=== PATIENT | female | born 1980 | race Caucasian/White ===

== ENCOUNTER → 2017-06-02 | Outpatient (CLI) | payer BC ==
[2017-06-02 11:26] LABS: Basophils % (A) 0 %; Eosinophils # (A) 0.4 k/uL (0-0.7); Eosinophils % (A) 5 %; HCT 42.2 % (34.0-46.0); HGB 14.4 gm/dL (11.4-16.0); Lymphocytes % (A) 27 %; MCV 88.2 fL (80.0-100.0); Mean Platelet Volume 7.8; Monocytes # (A) 0.4 k/uL (0-1.0); Monocytes % (A) 6 %; Neutrophils # (A) 4.3 k/uL (1.3-7.7); Neutrophils % (A) 60 %; Platelet Count 165 k/uL (150-450); RBC 4.78 m/uL (3.80-5.40); RDW 12.8 % (11.5-15.5); WBC 7.2 k/uL (3.8-10.6)
== END | disposition home or self-care (01) ==
LOC: LABPAT 10:55
PROVIDERS: ATTEND Obstetrics & Gynecology
DX: Z01.812 Encounter for preprocedural laboratory examination (principal); N92.0 Excessive and frequent menstruation with regular cycle
CPT/HCPCS: 36415; 85025

== ENCOUNTER 2017-06-17 08:02 | Day surgery (SDC) | payer BC ==
[2017-06-09 15:27] VITALS: BMI 35.4
[~2017-06-17 08:02] MED LIST: DEXAMETHASONE SOD PHOSPHATE 10 MG/ML 1 ML VIAL IV ONE; HYDROmorphone 0.5 MG/0.5 ML SYRINGE IVP PRN; LIDOCAINE 1% 20 ML VIAL (10MG/ML) FOR IV START INTRADERMA PRN; MIDAZOLAM 2 MG/2 ML VIAL IV PRN; ONDANSETRON 4 MG/2 ML VIAL IVP ONE; Pre Op ABX Message 1 EACH MISC MISCELLANE ONE; SCOPOLAMINE 1.5MG/72HR PATCH TRANSDERM ONE; fentaNYL (PF) 50 MCG/ML 2 ML AMP IV PRN
[2017-06-17 08:34] VITALS: RESP 16
[2017-06-17] MEDS: LACTATED RINGERS 1,000 ML IV SCH ×2 (08:37→09:46)
[2017-06-17 08:54] LABS: Glucose,Whole Blood 128 mg/dL (75-99)
[2017-06-17] MEDS ORDERED: MIDAZOLAM 2 MG/2 ML VIAL ONE (09:49)
[2017-06-17] MEDS ORDERED: PROPOFOL 10 MG/ML 20 ML VIAL IV ONE (09:49)
[2017-06-17] MEDS ORDERED: KETOROLAC 30 MG/ML 1 ML VIAL ONE (09:49)
[2017-06-17] MEDS ORDERED: LIDOCAINE 1% INJ 10MG/ML (20 ML MDV) ONE (09:49)
[2017-06-17] MEDS ORDERED: fentaNYL (PF) 50 MCG/ML 2 ML AMP ONE (09:49)
--- NOTE | 2017-06-17 10:11 | P.OP ---
Date of Procedure: 06/17/17 Preoperative Diagnosis: Menorrhagia Postoperative Diagnosis: Same Procedure(s) Performed: Hysteroscopy, NovaSure ablation. Anesthesia: ANGELA Surgeon: Monica Mtz Estimated Blood Loss (ml): 5 IV fluids (ml): 300 Urine output (ml): 200 Pathology: none sent Condition: stable Disposition: PACU Description of Procedure: Patient is brought to the operating suite where a general anesthetic is administered without difficulty. She's placed in the dorsal lithotomy position. The appropriate timeout is performed to assure proper patient and procedural identification, urine hCG is negative. The cervix, vagina, perineal bodies are all prepped and draped in the usual sterile fashion. The bladder is drained for approximately 200 mL of clear yellow urine. Examination under anesthesia reveals an anteverted uterus that is small mobile, adnexa negative bilaterally. Weighted speculum was placed into the vagina. Anterior lip of the cervix is grasped with a double-tooth tenaculum. The uterus sounds to a depth of 7.5 cm in the anteverted position. Cervix is gently and systematically dilated using Hanks dilators. Hysteroscope was then placed and saline is infused. The cavity is distended and inspected, there are no polyps fibroids intrauterine septa or defects. Hysteroscope was removed. NovaSure wand is next seated, Calibrated and enabled. For 92 seconds with a power of 76 W the procedure is carried out. Uterine length is 5.5 cm, width is 2.5 cm. When the machine shuts off the wand is reduced and removed. Reinspection of the cavity now with the hysteroscope reveals the cavity to be uniformly blanched, consistent with thorough procedure. Hysteroscope was removed. Anterior lip of the cervix is clean and dry. All sponge needle and enhancement counts are correct. Patient is brought back to recovery room in very good condition with stable vital signs including a blood pressure 121/57, pulse 59, 94% O2 saturation. Toradol is given prior to leaving the operative suite. Patient will follow-up with me in the office in 2 weeks.
[2017-06-17 10:25] VITALS: TEMP 97
[2017-06-17 10:40] LABS: Glucose,Whole Blood 119 mg/dL (75-99)
[2017-06-17 11:25] VITALS: BP 130/75; PULSE 55
== END 2017-06-17 11:30 | disposition home or self-care (01) ==
LOC: OR 08:02
PROVIDERS: ATTEND Obstetrics & Gynecology
DX: N92.0 Excessive and frequent menstruation with regular cycle (principal); E11.9 Type 2 diabetes mellitus without complications; F17.210 Nicotine dependence, cigarettes, uncomplicated; E78.5 Hyperlipidemia, unspecified; Z79.84 Long term (current) use of oral hypoglycemic drugs; Z79.899 Other long term (current) drug therapy; Z88.2 Allergy status to sulfonamides
CPT/HCPCS: 81025; 58563; J2250; J1100; J2405; J2001; J3010; J1885; J2704

== ENCOUNTER 2017-12-09 07:45 | Emergency (ER) | payer BC ==
[2017-12-09] MEDS ORDERED: SODIUM CHLORIDE 0.9% 500 ML IV STA (08:08)
[2017-12-09] MEDS ORDERED: SODIUM CHLORIDE 0.9% 1,000 ML IV STA (08:08)
--- NOTE | 2017-12-09 08:11 | ED ---
Recheck HPI - General Chief Complaint: Recheck/Abnormal Lab/Rx Stated Complaint: numbness in fingers and toes Time Seen by Provider: 12/09/17 07:56 Source: patient, RN notes reviewed, old records reviewed Mode of arrival: wheelchair Limitations: no limitations - History of Present Illness Initial Comments: 37-year-old female presents emergency department today with chief complaint of numbness and tingling over the hands and feet. Patient reports that today she started to have some burning in her chest as well. She states she was seen at [facility] earlier this year was also an outpatient stress test completed. She she never had this done. She is concerned about having any heart attacks. She states that she was driving to school today and started having numbness in her feet became quite anxious. Patient states that she has had family history of heart disease. Patient denies any fevers or chills. She denies a nausea vomiting or shortness of breath. She denies any headache or dizziness. - Related Data Home Medications Medication Instructions Recorded Confirmed Rosuvastatin Calcium [Crestor] 5 mg PO HS 06/09/17 12/09/17 metFORMIN HCL [Glucophage] 500 mg PO BID 06/09/17 12/09/17 Allergies Allergy/AdvReac Type Severity Reaction Status Date / Time Sulfa (Sulfonamide Allergy Anaphylaxis Verified 12/09/17 08:09 Antibiotics) Review of Systems ROS Statement: Those systems with pertinent positive or pertinent negative responses have been documented in the HPI. ROS Other: All systems not noted in ROS Statement are negative. Past Medical History Past Medical History: Diabetes Mellitus History of Any Multi-Drug Resistant Organisms: None Reported Past Surgical History: Section Additional Past Surgical History / Comment(s): uterine ablation cryosurgery Past Psychological History: No Psychological Hx Reported Smoking Status: Current every day smoker Past Alcohol Use History: Occasional Past Drug Use History: None Reported General Exam - General Exam Comments Initial Comments: 37-year-old female. Alert and oriented. No acute distress. Limitations: no limitations General appearance: alert, in no apparent distress Head exam: Present: atraumatic, normocephalic, normal inspection Eye exam: Present: normal appearance, PERRL, EOMI. Absent: scleral icterus, conjunctival injection, periorbital swelling ENT exam: Present: normal exam, mucous membranes moist Neck exam: Present: normal inspection. Absent: tenderness, meningismus, lymphadenopathy Respiratory exam: Present: normal lung sounds bilaterally. Absent: respiratory distress, wheezes, rales, rhonchi, stridor Cardiovascular Exam: Present: regular rate, normal rhythm, normal heart sounds. Absent: systolic murmur, diastolic murmur, rubs, gallop, clicks GI/Abdominal exam: Present: soft, normal bowel sounds. Absent: distended, tenderness, guarding, rebound, rigid Extremities exam: Present: normal inspection, full ROM, normal capillary refill. Absent: tenderness, pedal edema, joint swelling, calf tenderness Back exam: Present: normal inspection Neurological exam: Present: alert, oriented X3, CN II-XII intact Psychiatric exam: Present: normal affect, normal mood Skin exam: Present: warm, dry, intact, normal color. Absent: rash Course Vital Signs 12/09/17 07:50 Temperature 98.4 F Pulse Rate 79 Respiratory 16 Rate Blood Pressure 131/86 O2 Sat by Pulse 100 Oximetry Medical Decision Making - Medical Decision Making 29-year-old female process restricted complaint of 100 fingers, complains of chest pain. Initially believe the patient's symptoms related to anxiety attack. She states that she did not feel that we. Did offer the Patient had and she did refuse. We gave her an aspirin. EKG did show some T-wave inversions in V1 and V2. I discussed. This to an old EKG done at the April 27 2017 at [facility]. There is no acute changes compared of this EKG from them. Her troponin is negative. The rest of her lab work was unremarkable besides mild elevation of her lumbar enzymes. I did inform Patient of all these results. She states that she wants to go home at this time. I did discuss that she should have some prompt follow up with her primary care physician as well as a distance learning program coordinator to schedule outpatient stress testing. Patient agrees. She states these symptoms at this time and would like to be discharged home. Return parameters were discussed. - Lab Data Result diagrams: 12/09/17 08:34 12/09/17 08:34 Lab Results 12/09/17 12/09/17 12/09/17 Range/Units 08:34 08:34 08:34 WBC 6.9 (3.8-10.6) k/uL RBC 4.83 (3.80-5.40) m/uL Hgb 15.0 (11.4-16.0) gm/dL Hct 43.5 (34.0-46.0) % MCV 90.1 (80.0-100.0) fL MCH 31.1 (25.0-35.0) pg MCHC 34.5 (31.0-37.0) g/dL RDW 12.5 (11.5-15.5) % Plt Count 160 (150-450) k/uL Neutrophils % 58 % Lymphocytes % 27 % Monocytes % 7 % Eosinophils % 6 % Basophils % 1 % Neutrophils # 4.0 (1.3-7.7) k/uL Lymphocytes # 1.9 (1.0-4.8) k/uL Monocytes # 0.5 (0-1.0) k/uL Eosinophils # 0.4 (0-0.7) k/uL Basophils # 0.0 (0-0.2) k/uL PT (9.0-12.0) sec INR (<1.2) APTT (22.0-30.0) sec Sodium 141 (137-145) mmol/L Potassium 4.4 (3.5-5.1) mmol/L Chloride 109 H (98-107) mmol/L Carbon Dioxide 18 L (22-30) mmol/L Anion Gap 14 mmol/L BUN 13 (7-17) mg/dL Creatinine 0.65 (0.52-1.04) mg/dL Est GFR (CKD-EPI)AfAm >90 (>60 ml/min/1.73 sqM) Est GFR (CKD-EPI)NonAf >90 (>60 ml/min/1.73 sqM) Glucose 130 H (74-99) mg/dL Calcium 9.4 (8.4-10.2) mg/dL Magnesium 2.0 (1.6-2.3) mg/dL Total Bilirubin 0.6 (0.2-1.3) mg/dL AST 56 H (14-36) U/L ALT 55 H (9-52) U/L Alkaline Phosphatase 57 (38-126) U/L Total Creatine Kinase 90 (30-135) U/L CK-MB (CK-2) 0.5 (0.0-2.4) ng/mL CK-MB (CK-2) Rel Index 0.6 Troponin I <0.012 (0.000-0.034) ng/mL Total Protein 7.2 (6.3-8.2) g/dL Albumin 4.1 (3.5-5.0) g/dL 12/09/17 Range/Units 08:34 WBC (3.8-10.6) k/uL RBC (3.80-5.40) m/uL Hgb (11.4-16.0) gm/dL Hct (34.0-46.0) % MCV (80.0-100.0) fL MCH (25.0-35.0) pg MCHC (31.0-37.0) g/dL RDW (11.5-15.5) % Plt Count (150-450) k/uL Neutrophils % % Lymphocytes % % Monocytes % % Eosinophils % % Basophils % % Neutrophils # (1.3-7.7) k/uL Lymphocytes # (1.0-4.8) k/uL Monocytes # (0-1.0) k/uL Eosinophils # (0-0.7) k/uL Basophils # (0-0.2) k/uL PT 10.7 (9.0-12.0) sec INR 1.1 (<1.2) APTT 26.7 (22.0-30.0) sec Sodium (137-145) mmol/L Potassium (3.5-5.1) mmol/L Chloride (98-107) mmol/L Carbon Dioxide (22-30) mmol/L Anion Gap mmol/L BUN (7-17) mg/dL Creatinine (0.52-1.04) mg/dL Est GFR (CKD-EPI)AfAm (>60 ml/min/1.73 sqM) Est GFR (CKD-EPI)NonAf (>60 ml/min/1.73 sqM) Glucose (74-99) mg/dL Calcium (8.4-10.2) mg/dL Magnesium (1.6-2.3) mg/dL Total Bilirubin (0.2-1.3) mg/dL AST (14-36) U/L ALT (9-52) U/L Alkaline Phosphatase (38-126) U/L Total Creatine Kinase (30-135) U/L CK-MB (CK-2) (0.0-2.4) ng/mL CK-MB (CK-2) Rel Index Troponin I (0.000-0.034) ng/mL Total Protein (6.3-8.2) g/dL Albumin (3.5-5.0) g/dL 12/09/17 08:25 EKG shows sinus rhythm nonspecific T-wave abnormality. Abnormal EKG noted. Ventricular rate 69 bpm. Was 132 ms. Stressors and is 80 ms. QT QTC 390/470 ms. - Radiology Data Radiology results: report reviewed Chest x-rays negative for any acute cardiopulmonary process. Disposition Clinical Impression: Atypical chest pain, Paresthesia Disposition: HOME SELF-CARE Condition: Good Instructions: Chest Pain (ED) Additional Instructions: Patient is have close follow-up with primary care physician. Return to emergency department if any alarming signs or symptoms occur. Is patient prescribed a controlled substance at d/c from ED?: No Referrals: Iqra Ledezma DO [Primary Care Provider] - 1-2 days Time of Disposition: 09:56
[2017-12-09] MEDS ORDERED: ASPIRIN 325 MG TAB PO STA (08:25)
[2017-12-09] MEDS: LORazepam 1 MG TAB PO STA ×2 (08:42→08:44)
[2017-12-09 08:46] LABS: Basophils % (A) 1 %; Eosinophils # (A) 0.4 k/uL (0-0.7); Eosinophils % (A) 6 %; HCT 43.5 % (34.0-46.0); Lymphocytes # (A) 1.9 k/uL (1.0-4.8); Lymphocytes % (A) 27 %; MCH 31.1 pg (25.0-35.0); MCHC 34.5 g/dL (31.0-37.0); MCV 90.1 fL (80.0-100.0); Monocytes # (A) 0.5 k/uL (0-1.0); Monocytes % (A) 7 %; Neutrophils % (A) 58 %; Platelet Count 160 k/uL (150-450); RBC 4.83 m/uL (3.80-5.40); RDW 12.5 % (11.5-15.5); WBC 6.9 k/uL (3.8-10.6)
[2017-12-09 08:56] LABS: ALT 55 U/L (9-52); AST 56 U/L (14-36); Albumin 4.1 g/dL (3.5-5.0); Alkaline Phosphatase 57 U/L (38-126); Anion Gap 14 mmol/L; Blood Urea Nitrogen 13 mg/dL (7-17); Calcium 9.4 mg/dL (8.4-10.2); Carbon Dioxide 18 mmol/L (22-30); Chloride 109 mmol/L (98-107); Glucose 130 mg/dL (74-99); Sodium 141 mmol/L (137-145); Total Bilirubin 0.6 mg/dL (0.2-1.3); Total Protein 7.2 g/dL (6.3-8.2)
[2017-12-09 08:58] LABS: INR 1.1 (<1.2); Partial Thromboplastin Time 26.7 sec (22.0-30.0); Potassium 4.4 mmol/L (3.5-5.1); Prothrombin Time 10.7 sec (9.0-12.0)
--- NOTE | 2017-12-09 09:03 | XR ---
EXAMINATION TYPE: XR chest 2V DATE OF EXAM: 12/09/2017 COMPARISON: NONE HISTORY: Chest pain. TECHNIQUE: Frontal and lateral views of the chest are obtained. FINDINGS: There is no focal air space opacity, pleural effusion, or pneumothorax seen. The cardiac silhouette size is within normal limits. Underlying scoliosis is present. Overlying EKG leads are see n. IMPRESSION: No acute cardiopulmonary process.
[2017-12-09 09:11] LABS: Creatine Kinase 90 U/L (30-135)
[2017-12-09 09:24] LABS: Creatine Kinase MB 0.5 ng/mL (0.0-2.4); Troponin I <0.012 ng/mL (0.000-0.034)
[2017-12-09 10:04] VITALS: BP 120/78; PULSE 77; RESP 18; TEMP 98.1
== END 2017-12-09 10:04 | disposition home or self-care (01) ==
LOC: EC 07:45
DX: R20.2 Paresthesia of skin (principal); R07.89 Other chest pain; E11.9 Type 2 diabetes mellitus without complications; F17.200 Nicotine dependence, unspecified, uncomplicated; Z88.2 Allergy status to sulfonamides; Z79.84 Long term (current) use of oral hypoglycemic drugs; Z79.899 Other long term (current) drug therapy
CPT/HCPCS: 36415; 71046; 80053; 82550; 82553; 83735; 84484; 85025; 85610; 85730; 93005; 96360; 99284

== ENCOUNTER → 2019-10-26 | Outpatient (CLI) | payer BC ==
--- NOTE | 2019-10-26 11:39 | MM ---
Reason for exam: screening (asymptomatic). Baseline mammogram. History: Patient history of other cancer. Took hormonal contraceptives beginning at age 15. Physical Findings: Nurse did not find any significant physical abnormalities on exam. MG 3D Screening Mammo W/Cad Bilateral CC and MLO view(s) were taken. The breast tissue is heterogeneously dense. This may lower the sensitivity of mammography. Benign calcifications. There is no discrete abnormality. These results were verbally communicated with the patient and result sheet given to the patient on 10/26/19. ASSESSMENT: Benign, BI-RAD 2 RECOMMENDATION: Routine screening mammogram of both breasts in 1 year.
== END | disposition home or self-care (01) ==
LOC: RADMAMWWP 10:56
PROVIDERS: ATTEND Family Medicine
DX: Z12.31 Encounter for screening mammogram for malignant neoplasm of breast (principal)
CPT/HCPCS: 77063; 77067

== ENCOUNTER → 2022-02-21 | Outpatient (CLI) | payer BC ==
--- NOTE | 2022-02-22 07:05 | MM ---
Reason for Exam: Screening (asymptomatic). Last mammogram was performed 2 year(s) and 4 month(s) ago. Patient History: First Full-Term at age 24. Other cancer. Hormonal Contraceptives, from age 15 until age 23. Mother had breast cancer at or over age 50. Risk Values: Za 5 year model risk: 1.2%. NCI Lifetime model risk: 17.0%. Prior Study Comparison: 10/26/2019 Bilateral Screening Mammogram, [facility]. Tissue Density: The breast tissue is heterogeneously dense. This may lower the sensitivity of mammography. Findings: Analyzed By CAD. There are tiny loosely grouped round calcification bilaterally in the anterior aspect background dense tissue but increased number of calcifications in the right breast upper outer aspect behind the nipple more heterogeneous in appearance. Follow-up at this level advised. Overall Assessment: Incomplete: need additional imaging evaluation, BI-RAD 0 Management: Special View Mammogram of the right breast. Return for additional spot magnification and 3-D true lateral view right breast . Electronically signed and approved by: Stanley Comer M.D.
== END | disposition home or self-care (01) ==
LOC: RADMAMWWP 12:23
PROVIDERS: ATTEND Family Medicine
DX: Z12.31 Encounter for screening mammogram for malignant neoplasm of breast (principal); Z80.3 Family history of malignant neoplasm of breast
CPT/HCPCS: 77063; 77067

== ENCOUNTER → 2022-02-26 | Outpatient (CLI) | payer BC ==
--- NOTE | 2022-02-26 10:46 | MM ---
Reason for Exam: Additional evaluation requested from abnormal screening. Last screening mammogram was performed less than 1 month ago. Patient History: First Full-Term at age 24. Other cancer. Hormonal Contraceptives, from age 15 until age 23. Mother had breast cancer at or over age 50. Risk Values: Za 5 year model risk: 1.2%. NCI Lifetime model risk: 17.0%. Tissue Density: Right: The breast tissue is heterogeneously dense. This may lower the sensitivity of mammography. Findings: Analyzed By CAD. Extensive regional microcalcifications anterior right breast centrally and laterally. Many of these are amorphous, some are benign milk of calcium. Others are indeterminate. Biopsy can confirm benign diagnosis moving forward. Overall Assessment: Suspicious, BI-RAD 4 Management: Stereotactic Core Biopsy of the right breast. A couple characteristic groups are marked on the mag CC view laterally that can be considered for life assurance representative sampling. Results were given to the patient verbally at the time of exam. Electronically signed and approved by: Quinton Delgado M.D. Radiologist
== END | disposition home or self-care (01) ==
LOC: RADMAMWWP 10:01
PROVIDERS: ATTEND Family Medicine
DX: R92.8 Other abnormal and inconclusive findings on diagnostic imaging of breast (principal); Z80.3 Family history of malignant neoplasm of breast
CPT/HCPCS: 77061; 77065

== ENCOUNTER → 2022-03-04 | Day surgery (SDC) | payer BC ==
[2022-03-04 07:24] VITALS: RESP 16
[2022-03-04 08:55] VITALS: BP 123/82; PULSE 70; TEMP 98.1
--- NOTE | 2022-03-11 09:52 | MM ---
Risk Values: Za 5 year model risk: 1.2%. NCI Lifetime model risk: 17.0%. Prior Study Comparison: 10/26/2019 Bilateral Screening Mammogram, [facility]. 02/21/2022 Bilateral MG 3D screening mammo w/cad, [facility]. 02/26/2022 Right MG 3D work up w/cad RT, [facility]. Pathology Description: Location: anterior. Marker Left Behind. Specimen Radiograph. Approach: CC FA Needle Type: Eviva Cores: 12 Skin Nicks: 1 Gauge: 9 The procedure of stereotactic guided core biopsy was explained to the patient. Benefits, alternatives, and risks were discussed. An informed consent was then obtained. The shortness pathway for biopsy was chosen. Shortness pathway was a CC from above approach. I performed the localization, followed by the remainder of the procedure. A vacuum assisted biopsy gun was used to obtain multiple core samples. The patient tolerated the procedure well without any immediate complication. The patient was kept in the radiology department for short stay after the procedure and then discharged home in stable condition. Targeted calcifications are identified in specimen mammogram. Post biopsy mammogram shows the clip to appear in satisfactory position relative to the targeted area of concern on the preprocedure images. Impression: SUCCESSFUL, UNCOMPLICATED STEREOTACTIC GUIDED CORE BIOPSY OF A EMPLOYEE RELATIONS SPECIALIST AREA OF EXTENSIVE MICROCALCIFICATIONS IN THE RIGHT BREAST. Pathology Results: Result: High risk, Atypical ductal hyperplasia. RIGHT BREAST, STEREOTACTIC NEEDLE CORE BIOPSY: Minute focus of atypical ductal hyperplasia (ADH) and a small intraductal papilloma in a background of fibrocystic changes with calcifications. Overall Assessment: High risk Management: Surgical Consultation of the right breast. Electronically signed and approved by: Quinton Delgado M.D. Radiologist
== END ==
LOC: RADMAMWWP 06:53
PROVIDERS: ATTEND Family Medicine
DX: N62 Hypertrophy of breast (principal)
CPT/HCPCS: 88305; 19081; A4648; J2001

== ENCOUNTER → 2022-05-16 | Outpatient (CLI) | payer BC ==
[2022-05-16 15:57] VITALS: BP 121/83; PULSE 73; RESP 16; TEMP 98.1
--- NOTE | 2022-05-16 16:20 | P.PN ---
Subjective Progress Note Date: 05/16/22 Principal diagnosis: atypical ductal hyperplasia right breast Atypical ductal hyperplasia right breast Yesica is a 41-year-old white female seen in consultation for Kiarra Garcia regarding a stereotactic core biopsy of the right breast revealing a small focus of atypical ductal hyperplasia as well as a small intraductal papilloma. She underwent a bilateral screening mammogram on [id number]. Additional views of the right breast were obtained on [id number]. Microcalcifi cations of concern were identified in the anterior right breast centrally and laterally. A stereotactic core biopsy was performed on 1223. This revealed atypical ductal hyperplasia as well as the intraductal papilloma. Patient does not feel any lumps masses or nodules of concern in either breast. This was a routine mammogram. She has never had any surgery on her breast in the past. She is not complaining of any recent trauma or infection in the breast. It is not complaining of any skin changes or nipple discharge. Caffeine: 1 cup/day Nicotine: One pack every 3 days, since chocolate: weekly BCP: 14 to 24 hormones: none Family History: mother: breast cancer 2 sisters: cervical pre-cancer patient: cervical precancer Hormonal History: menarche: 11 breast fed; no, age at : 24 pateint had an ablation 2017 hormones: none Surgical History: Uterine ablation Cryosurgery for cervical precancer Medical history: pre-diabetic high cholesterol Social history: Nicotine: One pack every 3 days Alcohol: Occasional Drugs: Negative - Constitutional Constitutional: Reports sweats - EENT Eyes: denies blurred vision, denies pain Ears: deny: decreased hearing, tinnitus Ears, nose, mouth and throat: Denies headache, Denies sore throat - Breasts Breasts: bilateral: as per HPI - Cardiovascular Cardiovascular: Denies chest pain, Denies shortness of breath - Respiratory Respiratory: Denies cough - Gastrointestinal Gastrointestinal: Denies abdominal pain, Denies diarrhea, Denies nausea, Denies vomiting - Genitourinary (Female) Genitourinary: Denies dysuria, Denies hematuria - Menstruation Menstruation: Reports amenorrhea - Musculoskeletal Musculoskeletal: Denies myalgias - Integumentary Comment: port wine stain left arm Integumentary: Denies pruritus, Denies rash - Neurological Neurological: Denies numbness, Denies weakness - Psychiatric Psychiatric: Denies anxiety, Denies depression - Endocrine Endocrine: Reports weight change, Denies fatigue - Hematologic/Lymphatic Comment: none - Allergic/Immunologic Allergic/Immunologic: Reports seasonal allergies Past Medical History Past Medical History: Diabetes Mellitus Additional Past Medical History / Comment(s): Allergies History of Any Multi-Drug Resistant Organisms: None Reported Past Surgical History: Section Additional Past Surgical History / Comment(s): uterine ablation cryosurgery Past Anesthesia/Blood Transfusion Reactions: No Reported Reaction Past Psychological History: No Psychological Hx Reported Smoking Status: Current every day smoker Past Alcohol Use History: Occasional Additional Past Alcohol Use History / Comment(s): smokes one pack every 3 days Past Drug Use History: None Reported Medications and Allergies Home Medications Medication Instructions Recorded Confirmed Type Rosuvastatin Calcium [Crestor] 10 mg PO HS 06/09/17 04/11/22 History Loratadine [Claritin] 10 mg PO DAILY 02/26/22 04/11/22 History Montelukast [Singulair] 10 mg PO DAILY 02/26/22 04/11/22 History Liraglutide [Saxenda] 0.6 mg SQ DAILY 04/11/22 04/11/22 History Allergies Allergy/AdvReac Type Severity Reaction Status Date / Time Sulfa (Sulfonamide Allergy Anaphylaxis Verified 04/11/22 15:44 Antibiotics) Objective - Vital Signs Vital signs: Vital Signs Temp 98.1 F 05/16/22 15:53 Pulse 73 05/16/22 15:53 Resp 16 05/16/22 15:53 BP 121/83 05/16/22 15:53 Pulse Ox 96 05/16/22 15:53 FiO2 Intake & Output 05/15/22 05/16/22 05/16/22 18:59 06:59 18:59 Weight 77.111 kg - Constitutional General appearance: Present: cooperative - EENT Eyes: Present: EOMI ENT: Present: hearing grossly normal - Neck Neck: Present: normal ROM - Respiratory Respiratory: bilateral: CTA - Cardiovascular Rhythm: regular Heart sounds: normal: S1, S2 - Gastrointestinal General gastrointestinal: Present: soft - Integumentary Integumentary: Present: normal turgor - Musculoskeletal Musculoskeletal: Present: gait normal - Psychiatric Psychiatric: Present: A&O x's 3, appropriate affect, intact judgment & insight - Additional findings Additional findings: Breast Exam: BRA: 36C Inspection: Bilateral grade 2/3 ptosis Palpation: Right breast: Multi-positional exam fibrocystic changes no discrete dominant mas ses or nodules of concern Right axilla: No adenopathy of concern Left breast: Multi-positional exam fibrocystic changes no dominant masses or nodules of concern Left axilla: No adenopathy of concern Assessment and Plan Assessment: Impression: Microcalcifications of concern right breast/stereotactic core biopsy reveals intraductal papilloma as well as atypical ductal hyperplasia Fibrocystic breast changes Prediabetic Plan: [ Right breast Needle localization excisional biopsy of microcalcifications of concern right breast, right breast mastopexy incision, possible right breast onco-plastic tissue transfer Would recommend that mother have genetic testing done secondary to daughters with positive cervical pre-cancer patient had genetic testing done and results are pending, her mother also had genetic testing done but results are pending CC: Kiarra Garcia
== END ==
LOC: WWCWWP 15:30
PROVIDERS: ATTEND Surgery
DX: N60.11 Diffuse cystic mastopathy of right breast (principal); N60.12 Diffuse cystic mastopathy of left breast; E11.9 Type 2 diabetes mellitus without complications; F17.200 Nicotine dependence, unspecified, uncomplicated; E78.00 Pure hypercholesterolemia, unspecified; Z88.2 Allergy status to sulfonamides

== ENCOUNTER 2022-06-04 12:10 | Day surgery (SDC) | payer BC ==
[~2022-06-04 12:10] MED LIST changes: -DEXAMETHASONE SOD PHOSPHATE 10 MG/ML 1 ML VIAL IV ONE; +DEXAMETHASONE SOD PHOSPHATE 4 MG/ML 1 ML VIAL IV ONE; +HEPARIN SODIUM,PORCINE/PF 5,000 UNIT/0.5 ML SYRINGE SQ PRN; +LACTATED RINGERS 1,000 ML IV SCH; +LIDOCAINE 1% (10MG/ML) FOR IV START INTRADERMA PRN; -LIDOCAINE 1% 20 ML VIAL (10MG/ML) FOR IV START INTRADERMA PRN; -SCOPOLAMINE 1.5MG/72HR PATCH TRANSDERM ONE; -fentaNYL (PF) 50 MCG/ML 2 ML AMP IV PRN
[2022-06-04 13:03] LABS: Glucose,Whole Blood 89 mg/dL (70-110)
[2022-06-04] MEDS ORDERED: ALPRAZolam 0.5 MG TAB ONE (13:04)
[2022-06-04] MEDS ORDERED: ALPRAZolam 0.5 MG TAB PO ONE (13:04)
[2022-06-04] MEDS ORDERED: SCOPOLAMINE 1 MG/72 HR PATCH TRANSDERM ONE (13:11)
[2022-06-04 13:47] VITALS: RESP 16
[2022-06-04] MEDS ORDERED: LIDOCAINE 1% INJ 10MG/ML (20 ML MDV) SQ ONE (13:55)
[2022-06-04] MEDS ORDERED: SODIUM CHLORIDE 0.9% 100 ML with ceFAZolin 2,000 MG IV ONE ×2 (15:13)
[2022-06-04] MEDS ORDERED: fentaNYL (PF) 50 MCG/ML 2 ML AMP ONE (15:13)
[2022-06-04] MEDS ORDERED: SUCCINYLCHOLINE CHLORIDE 200 MG/10 ML VIAL IV ONE (15:13)
[2022-06-04] MEDS ORDERED: MIDAZOLAM 2 MG/2 ML VIAL ONE (15:13)
[2022-06-04] MEDS ORDERED: LIDOCAINE 2% INJ 20 MG/ML (2 ML VIAL) ONE (15:13)
[2022-06-04] MEDS ORDERED: PROPOFOL 10 MG/ML 20 ML VIAL IV ONE (15:13)
--- NOTE | 2022-06-04 16:38 | P.OP ---
Date of Procedure: 06/04/22 Preoperative Diagnosis: atypical hyperplasia, intraductal papilloma on core biopsy right breast Postoperative Diagnosis: same Procedure(s) Performed: needle localization lumpectomy, mastopexy, onco-plastic tissue transfer 20 cm Anesthesia: DARIOA Surgeon: Uma Lu Estimated Blood Loss (ml): 8 IV fluids (ml): 500 Pathology: other (breaet tissue) Condition: stable Disposition: same day Indications for Procedure: atypical hyperplasia and intraductal papilloma on core biopsy Operative Findings: dense breast tissue Description of Procedure: The patient was seen in the radiology department and the area of concern was localized via needle localization. She was brought up to the preoperative area of where the skin was marked for a mastopexy incision. Elevation of the areolar would be approximately 3 cm on the meridian line. The patient was then brought to the operative suite. Following induction of anesthesia the right breast was prepped and draped in a sterile fashion. The skin for the mastopexy was de-epithelialized. A crescent mastopexy was utilized. The parenchyma of the breast tissue was entered. The dissection was carried down to the shaft of the needle. Surrounding tissue was excised. The lesion cavity was approximately 3 x 2 cm. The wound was evaluated for hemostasis. Surgicel in powder form was placed. The specimen was radiographed and the area of concern was noted to be present with the clip. Titanium clips were placed in the cavity. After we assured that hemostasis was attained the superior pillar 4 x 2 cm was formed in the inferior pillar 3 x 2 cm was performed. The cavity itself was 3 x 2 cm. A total tissue transfer of 20 CM2 was developed. The cavity was brought together using 3-0 Vicryl suture. The mastopexy incision was then closed using 3-0 Vicryl suture followed by 3-0 Dunbar-Anthony suture. A nylon skin suture was placed. The patient tolerated procedure in stable condition.
--- NOTE | 2022-06-04 16:39 | P.DS ---
Providers Attending physician: Uam Lu Primary care physician: Iqra Ledezma Plan - Discharge Summary Discharge Rx Participant: No New Discharge Prescriptions: No Action Rosuvastatin Calcium [Crestor] 10 mg PO QAM Montelukast [Singulair] 10 mg PO DIRECTED PRN PRN Reason: SEASONAL Loratadine [Claritin] 10 mg PO QAM Liraglutide [Saxenda] 0.6 mg SQ QAM Discharge Medication List Rosuvastatin Calcium [Crestor] 10 mg PO QAM 06/09/17 [History] Loratadine [Claritin] 10 mg PO QAM 02/26/22 [History] Montelukast [Singulair] 10 mg PO DIRECTED PRN 02/26/22 [History] Liraglutide [Saxenda] 0.6 mg SQ QAM 04/11/22 [History] Follow up Appointment(s)/Referral(s): Uma Lu MD [STAFF PHYSICIAN] - 06/13/22 4:00 pm Patient Instructions/Handouts: *[facility] - Anesthesia Discharge Instructions, *[facility] - Scopalamine Patch Instructions Activity/Diet/Wound Care/Special Instructions: do not drive for 24 hours from discharge, or if taking narcotic pain medicine may shower after 48 hours wear bra at all times Discharge Disposition: HOME SELF-CARE
[2022-06-04 16:51] VITALS: TEMP 96.8
[2022-06-04 17:21] LABS: Glucose,Whole Blood 123 mg/dL (70-110)
[2022-06-04] MEDS ORDERED: HYDROcodone/APAP 5-325MG 1 EACH TAB ONE (17:29)
[2022-06-04] MEDS ORDERED: HYDROcodone/APAP 5-325MG 1 EACH TAB PO ONE (17:34)
[2022-06-04 18:00] VITALS: BP 118/78; PULSE 64
== END 2022-06-04 18:06 | disposition home or self-care (01) ==
LOC: OR 12:10
PROVIDERS: ATTEND Surgery
DX: N60.91 Unspecified benign mammary dysplasia of right breast (principal)
CPT/HCPCS: 19301; 81025; 88305; 88307; 76098; 14001; 19316; C1819; J2250; J0330; J1100; J2405; J0690; J2001 ×2; J3010; J2704; J1170; J1644

== ENCOUNTER → 2022-06-20 | Outpatient (CLI) | payer BC ==
--- NOTE | 2022-06-20 15:25 | P.PN ---
Progress Note - Text Progress Note Date: 06/20/22 Yesica is status post right breast biopsy on . Post operatively she developed some erythema at the medial aspect of the incision. This appears to be related to the sutures. Her pathology revealed previous biopsy site and fibrocystic changes with usual type ductal hyperplasia. The patient on her original core biopsy had a focus of atypical ductal hyperplasia. The patient's genetic testing is still pending. Za risk 5 years 4% Lifetime risk 38.3% We have discussed chemoprophylaxis and at this time the patient has declined We have also discussed the possibility of alternating every 6 months with MRI versus mammogram as her lifetime risk of breast cancer as calculated is higher than 20%, we are going to see if her insurance company will allow this. Incision: Clean and dry with some erythema at the medial aspect of the incision Impression: High risk for development of breast cancer Fibrocystic breast changes Isolated focus of atypical ductal hyperplasia completely removed Plan: Possible alternating MRI with mammograms of insurance company allows for this Patient has declined chemoprophylaxis at this time Repeat right breast mammogram in 6 months with a physician exam at that time CC: Ingrid Garcia
[2022-06-20 15:48] VITALS: BP 131/85; PULSE 80; RESP 17; TEMP 97.9
== END ==
LOC: WWCWWP 15:05
PROVIDERS: ATTEND Surgery
DX: N60.11 Diffuse cystic mastopathy of right breast (principal); N62 Hypertrophy of breast; Z88.2 Allergy status to sulfonamides; F17.200 Nicotine dependence, unspecified, uncomplicated

== ENCOUNTER → 2022-08-21 | Outpatient (CLI) | payer BC ==
[2022-08-21 11:48] VITALS: BP 130/92; PULSE 87; RESP 18; TEMP 98.2
--- NOTE | 2022-08-21 12:45 | P.PN ---
Progress Note - Text Progress Note Date: 08/21/22 Progress Note - Text Progress Note Date: 06/20/22 Yesica is status post right breast biopsy on . Post operatively she developed some erythema at the medial aspect of the incision. This appeared to be related to the sutures. Her pathology revealed previous biopsy site and fibrocystic changes with usual type ductal hyperplasia. The patient on her original core biopsy had a focus of atypical ductal hyperplasia. 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 After the procedure she was seen on and had some erythema of the medial aspect of the incision she was treated with Keflex and this resolved. The patient states that this Friday when she woke up that she noted that there was some aching in the lateral aspect of her incision and some erythema. She is not complaining of any fever or chills. The knot on the suture is actually protruding from the lateral aspect of the incision. Za risk 5 years 4% Lifetime risk 38.3% We have discussed chemoprophylaxis and at this time the patient has declined We have also discussed the possibility of alternating every 6 months with MRI versus mammogram as her lifetime risk of breast cancer as calculated is higher than 20%, we are going to see if her insurance company will allow this, we are still waiting for the insurance company Incision: There is mild erythema at the lateral aspect of the incision, the suture is extruding from this site Impression: High risk for development of breast cancer Fibrocystic breast changes Isolated focus of atypical ductal hyperplasia completely removed Plan: Possible alternating MRI with mammograms of insurance company allows for this Patient has declined chemoprophylaxis at this time Repeat right breast mammogram in 6 months with a physician exam at that time The suture at the lateral aspect of the incision is clipped CC: Ingrid Garcia Additional CC's: Etta Garcia
== END ==
LOC: WWCWWP 11:24
PROVIDERS: ATTEND Surgery
DX: N60.11 Diffuse cystic mastopathy of right breast (principal); L53.9 Erythematous condition, unspecified; Z88.2 Allergy status to sulfonamides; F17.200 Nicotine dependence, unspecified, uncomplicated

== ENCOUNTER → 2023-04-21 | Outpatient (CLI) | payer BC ==
--- NOTE | 2023-04-21 08:56 | MM ---
Reason for Exam: Clinical finding. Last mammogram was performed 1 year(s) and 2 month(s) ago. Patient History: Menarche at age 11. First Full-Term at age 24. Previous Atypical Ductal Hyperplasia at age 41. Hormonal Contraceptives, from age 15 until age 23. 06/04/2022, Lumpectomy on the Right side. 06/04/2022, Benign MG pre op needle loc RT on the right side. 03/04/2022, High risk MG stereo VAD BX RT on the right side. Mother had breast cancer, age 70. Risk Values: Kiesha 5 year model risk: 7.2%. NCI Lifetime model risk: 46.6%. Tissue Density: The breast tissue is heterogeneously dense. This may lower the sensitivity of mammography. Findings: Analyzed By CAD. Postsurgical changes right breast. Surgical clips are present here with some postsurgical distortion. A few punctate calcifications remain in this region. Short interval follow-up recommended. Otherwise, no significant change. Overall Assessment: Probably benign, BI-RAD 3 Management: Diagnostic Mammogram of the right breast in 6 months. SEE NOTE BELOW IN REGARDS TO PATIENT'S INCREASED 5 YEAR KIESHA SCORE AND MARKEDLY INCREASED LIFETIME RISK SCORE. Results were given to the patient verbally at the time of exam. Patient should continue monthly self-breast exams. A clinical breast exam by your physician is recommended on an annual basis. This exam should not preclude additional follow-up of suspicious palpable abnormalities. Note on Kiesha scores and lifetime risk: 1. A Kiesha score greater than 3% is considered moderate risk. If this is the case, consider specialist referral to assess eligibility for a risk reducing agent. 2. IF OVERALL LIFETIME RISK FOR THE DEVELOPMENT OF BREAST CANCER IS 20% OR HIGHER, THE PATIENT MAY QUALIFY FOR FUTURE SCREENING WITH ALTERNATING MAMMOGRAM AND BREAST MRI. Electronically signed and approved by: Quinton Delgado M.D. Radiologist
== END | disposition home or self-care (01) ==
LOC: RADMAMWWP 07:53
PROVIDERS: ATTEND Surgery
DX: R92.333 Mammographic heterogeneous density, bilateral breasts (principal); R92.8 Other abnormal and inconclusive findings on diagnostic imaging of breast; Z80.3 Family history of malignant neoplasm of breast
CPT/HCPCS: 77062; 77066

== ENCOUNTER → 2023-05-01 | Outpatient (CLI) | payer BC ==
--- NOTE | 2023-05-01 13:46 | P.PN ---
Subjective Progress Note Date: 05/01/23 Principal diagnosis: atypical hyperplasia right breast Atypical ductal hyperplasia right breast Yesica is a 41-year-old white female seen in consultation for Kiarra Garcia regarding a stereotactic core biopsy of the right breast revealing a small focus of atypical ductal hyperplasia as well as a small intraductal papilloma. He underwent a bilateral screening mammogram on 1220 [id number]. Additional views of the right breast were obtained on 1220 722. Microcalcifications of concern were identified in the anterior right breast centrally and laterally. A stereotactic core biopsy was performed on 1223. This revealed atypical ductal hyperplasia as well as the intraductal papilloma. Patient does not feel any lumps masses or nodules of concern in either breast. This was a routine mammogram. She had never had any surgery on her breast in the past. She was not complaining of any recent trauma or infection in the breast. She was not complaining of any skin changes or nipple discharge. The patient on 06-04-22 underwent open biopsy fo the right breast. The paothology was benign. She had a VUS on genetic testing. Her most recent mammogram was on 04-21-23 and was BIRAD 3, repeat right breast mammogram in 6 months. She is not complaining of any new lumps masses or nodules of concern in either breast. Za Risk: 5 year: 7.2% we have discussed chemoprophylaxis and she has declined Lifetime risk: 46.6% Caffeine: 1 cup/day Nicotine: One pack every 3 days, since chocolate: weekly BCP: 14 to 23 hormones: none Family History: mother: breast cancer 2 sisters: cervical pre-cancer patient: cervical precancer Hormonal History: menarche: 11 breast fed; no, age at : 24 pateint had an ablation 2018 hormones: none Surgical History: Uterine ablation Cryosurgery for cervical precancer Medical history: pre-diabetic high cholesterol Social history: Nicotine: One pack every 3 days Alcohol: Occasional Drugs: Negative - Constitutional Constitutional: Reports sweats - EENT Eyes: denies blurred vision, denies pain Ears: deny: decreased hearing, tinnitus Ears, nose, mouth and throat: Denies headache, Denies sore throat - Breasts Breasts: bilateral: as per HPI - Cardiovascular Cardiovascular: Denies chest pain, Denies shortness of breath - Respiratory Respiratory: Denies cough - Gastrointestinal Gastrointestinal: Denies abdominal pain, Denies diarrhea, Denies nausea, Denies vomiting - Genitourinary (Female) Genitourinary: Denies dysuria, Denies hematuria - Menstruation Menstruation: Reports amenorrhea - Musculoskeletal Musculoskeletal: Denies myalgias - Integumentary Comment: port wine stain left arm Integumentary: Denies pruritus, Denies rash - Neurological Neurological: Denies numbness, Denies weakness - Psychiatric Psychiatric: Denies anxiety, Denies depression - Endocrine Endocrine: Reports weight change, Denies fatigue - Hematologic/Lymphatic Comment: none - Allergic/Immunologic Allergic/Immunologic: Reports seasonal allergies Past Medical History Past Medical History: Diabetes Mellitus Additional Past Medical History / Comment(s): Allergies History of Any Multi-Drug Resistant Organisms: None Reported Past Surgical History: Section Additional Past Surgical History / Comment(s): uterine ablation cryosurgery Past Anesthesia/Blood Transfusion Reactions: No Reported Reaction Past Psychological History: No Psychological Hx Reported Smoking Status: Current every day smoker Past Alcohol Use History: Occasional Additional Past Alcohol Use History / Comment(s): smokes one pack every 3 days Past Drug Use History: None Reported Medications and Allergies Home Medications Medication Instructions Recorded Confirmed Type Rosuvastatin Calcium [Crestor] 10 mg PO HS 06/09/17 04/11/22 History Loratadine [Claritin] 10 mg PO DAILY 02/26/22 04/11/22 History Montelukast [Singulair] 10 mg PO DAILY 02/26/22 04/11/22 History Liraglutide [Saxenda] 0.6 mg SQ DAILY 04/11/22 04/11/22 History Allergies Allergy/AdvReac Type Severity Reaction Status Date / Time Sulfa (Sulfonamide Allergy Anaphylaxis Verified 04/11/22 15:44 Antibiotics) Objective - Vital Signs Vital signs: Vital Signs Temp 98.5 F 05/01/23 13:27 Pulse 83 05/01/23 13:27 Resp 15 05/01/23 13:27 BP 131/84 05/01/23 13:27 Pulse Ox 100 05/01/23 13:27 FiO2 Intake & Output 04/30/23 05/01/23 05/01/23 18:59 06:59 18:59 Weight 86.183 kg - Constitutional General appearance: Present: cooperative - EENT Eyes: Present: EOMI ENT: Present: hearing grossly normal - Neck Neck: Present: normal ROM - Respiratory Respiratory: bilateral: CTA - Cardiovascular Heart sounds: normal: S1, S2 - Gastrointestinal General gastrointestinal: Present: soft - Integumentary Integumentary: Present: normal turgor - Musculoskeletal Musculoskeletal: Present: gait normal - Psychiatric Psychiatric: Present: A&O x's 3, appropriate affect, intact judgment & insight - Additional findings Additional findings: Breast Exam: BRA: 36C Inspection: Bilateral grade 2/3 ptosis Palpation: Right breast: Multi-positional exam fibrocystic changes no discrete dominant masses or nodules of concern; post surgical changes Right axilla: No adenopathy of concern Left breast: Multi-positional exam fibrocystic changes no dominant masses or nodules of concern Left axilla: No adenopathy of concern Assessment and Plan Assessment: Impression: high risk breast cancer Fibrocystic breast changes Prediabetic Plan: MRI and mammogram every 6 months Follow-up in 6 months after MRI Patient to follow-up sooner any questions or concerns CC: Kiarra Garcia
[2023-05-01 13:51] VITALS: BP 131/84; PULSE 83; RESP 15; TEMP 98.5
== END ==
LOC: WWCWWP 13:17
PROVIDERS: ATTEND Surgery
DX: R92.8 Other abnormal and inconclusive findings on diagnostic imaging of breast (principal); N60.11 Diffuse cystic mastopathy of right breast; N60.12 Diffuse cystic mastopathy of left breast; E11.9 Type 2 diabetes mellitus without complications; E78.00 Pure hypercholesterolemia, unspecified; F17.210 Nicotine dependence, cigarettes, uncomplicated; N60.91 Unspecified benign mammary dysplasia of right breast; Z80.3 Family history of malignant neoplasm of breast; Z88.2 Allergy status to sulfonamides; Z79.84 Long term (current) use of oral hypoglycemic drugs

== ENCOUNTER → 2023-11-01 | Outpatient (CLI) | payer BC ==
--- NOTE | 2023-11-13 16:24 | BMR ---
EXAM DATE: 11/01/2023 EXAM DESCRIPTION: MRI-Breast Bilat (W/WO Contrast) INDICATION: Maternal history of breast cancer. Benign excisional biopsy right breast COMPARISON: PRIOR MRIs: None available. Correlation to mammograms: 04/21/2023, 06/04/2022, 03/04/2022. Correlation to ultrasound: None available. CONTRAST: 8.5 cc Gadavist IV gadolinium contrast TECHNIQUE: Study was performed at [facility] with Radiologic interpretation by [facility] Multiplanar multisequence MR imaging of both breasts was performed with a dedicated breast coil. Images were obtained before and after administration of IV gadolinium, using the standard breast mass protocol. Computer aided detection was utilized for interpretation. FINDINGS: LMP: Not provided General breast composition: There are scattered areas of fibroglandular tissue Background parenchymal enhancement: Minimal RIGHT BREAST: The T2 weighted series shows no areas of abnormal signal intensity. Postsurgical changes. Review of the dynamic series shows no early or abnormal enhancement. LEFT BREAST: The T2 weighted series shows no areas of abnormal signal intensity. Review of the dynamic series shows no early or abnormal enhancement. LYMPH NODES: There is no evidence of internal mammary or axillary adenopathy. IMPRESSION: RIGHT BREAST: No MR evidence of malignancy. LEFT BREAST: No MR evidence of malignancy. OVERALL ASSESSMENT -- BI-RADS 2: Benign ANNUAL SCREENING BREAST MRI IN ADDITION TO MAMMOGRAPHY IS RECOMMENDED IN PATIENTS WITH LIFETIME RISK OF BREAST CANCER >20% MTDD
== END | disposition home or self-care (01) ==
LOC: RADMRIMAIN 07:38
PROVIDERS: ATTEND Surgery
DX: R92.8 Other abnormal and inconclusive findings on diagnostic imaging of breast (principal); R68.89 Other general symptoms and signs; R92.323 Mammographic fibroglandular density, bilateral breasts; Z80.3 Family history of malignant neoplasm of breast
CPT/HCPCS: 77049; A9585

== ENCOUNTER → 2024-05-24 | Outpatient (CLI) | payer BC ==
--- NOTE | 2024-05-24 11:02 | MM ---
Reason for Exam: High risk patient. Last mammogram was performed 1 year(s) and 1 month(s) ago. Patient History: Menarche at age 11. First Full-Term at age 24. Previous Atypical Ductal Hyperplasia at age 41. Hormonal Contraceptives, from age 15 until age 23. 06/04/2022, Lumpectomy on the Right side. 06/04/2022, Benign MG pre op needle loc RT on the right side. 03/04/2022, High risk MG stereo VAD BX RT on the right side. Mother had breast cancer, age 70. Risk Values: Za 5 year model risk: 7.7%. NCI Lifetime model risk: 46.1%. Prior Study Comparison: 10/26/2019 Bilateral Screening Mammogram, [facility]. 02/21/2022 Bilateral MG 3D screening mammo w/cad, [facility]. 02/26/2022 Right MG 3D work up w/cad RT, [facility]. 04/21/2023 Bilateral MG 3D diag mammo w/cad JULIA, [facility]. Tissue Density: The breasts are heterogeneously dense, which may obscure small masses. Findings: Analyzed By CAD. Stable postoperative change involving the right breast. There are benign-appearing calcified patient's. No suspicious grouped calcifications. Overall Assessment: Benign, BI-RAD 2 Management: Screening Mammogram of both breasts in 1 year. . Results were given to the patient verbally at the time of exam. Patient should continue monthly self-breast exams. A clinical breast exam by your physician is recommended on an annual basis. This exam should not preclude additional follow-up of suspicious palpable abnormalities. Note on Za scores and lifetime risk: 1. A Za score greater than 3% is considered moderate risk. If this is the case, consider specialist referral to assess eligibility for a risk reducing agent. 2. If overall lifetime risk for the development of breast cancer is 20% or higher, the patient may qualify for future screening with alternating mammogram and breast MRI. [facility], , 05/24/2024 10:59 AM. Electronically signed and approved by: Juan Carlos Duncan M.D. Radiologis
== END | disposition home or self-care (01) ==
LOC: RADMAMWWP 10:33
PROVIDERS: ATTEND Surgery
DX: R92.8 Other abnormal and inconclusive findings on diagnostic imaging of breast (principal); R92.333 Mammographic heterogeneous density, bilateral breasts; Z98.890 Other specified postprocedural states; Z92.0 Personal history of contraception; Z80.3 Family history of malignant neoplasm of breast
CPT/HCPCS: 77062; 77066